=== PATIENT | male | born 1985 | race American Indian/Alaskan Native ===

== ENCOUNTER 2017-05-07 16:45 | Emergency (ER) | payer OTHER ==
[~2017-05-07] VITALS: Ht 190.5 cm; Wt 122.5 kg
[~2017-05-07 16:45] MED LIST: CIPR500 PO; Gentak3.5 GM RIGHTEYE; HYDACE5 PO; IBUP800 PO; OXYACE5T PO; PROACE100 PO; RXHYDACE PO; RXPROACE PO; SYNTHROID25 MCG PO; TRAM50 PO
== END 2017-05-07 18:20 | disposition home or self-care (01) ==
LOC: ER 16:45
DX: M25.562 Pain in left knee (principal); F17.210 Nicotine dependence, cigarettes, uncomplicated; W01.0XXA Fall on same level from slipping, tripping and stumbling without subsequent striking against object, initial encounter
CPT/HCPCS: 96372; 99283; J1885

== ENCOUNTER 2017-05-27 01:33 | Emergency (ER) | payer OTHER ==
[~2017-05-27] VITALS: Ht 190.5 cm; Wt 117.9 kg
== END 2017-05-27 04:28 | disposition home or self-care (01) ==
LOC: ER 01:33
DX: H10.9 Unspecified conjunctivitis (principal); F17.290 Nicotine dependence, other tobacco product, uncomplicated
CPT/HCPCS: 99283

== ENCOUNTER 2024-03-18 16:31 | Emergency (ER) | payer OTHER ==
[~2024-03-18] VITALS: Ht 188 cm; Wt 131.5 kg
[2024-03-18 16:39] VITALS: BP 148/93
== END 2024-03-18 17:52 | disposition home or self-care (01) ==
LOC: ER 16:31
DX: S93.601A Unspecified sprain of right foot, initial encounter (principal); X58.XXXA Exposure to other specified factors, initial encounter; Y93.67 Activity, basketball; Z79.899 Other long term (current) drug therapy
CPT/HCPCS: 73630; 99283-25

== ENCOUNTER → 2024-05-01 | Outpatient (CLI) | payer OTHER ==
[2024-05-03 22:46] LABS: QUANTIFERON PLUS TB1 MINUS NIL 0.01 IU/mL (<=0.34); QUANTIFERON PLUS TB2 MINUS NIL 0.01 IU/mL (<=0.34)
== END ==
LOC: LAB 08:38 → LAB SHORT 08:38
PROVIDERS: Nurse Practitioner Family
DX: Z11.1 Encounter for screening for respiratory tuberculosis (principal)
CPT/HCPCS: 86480